=== PATIENT | female | born 1940 | race Two or more races ===

== ENCOUNTER 2019-01-15 13:01 | Inpatient (IN) | payer MEDICARE, MEDICAID ==
[~2019-01-15] VITALS: Ht 160 cm; Wt 82.6 kg
[2019-01-15] VITALS (21 sets, daily range): BP systolic 67–115; BP diastolic 32–85
[2019-01-15] MEDS ORDERED: IV NS 0.9% 500 ML BAG IV ONE (13:30)
[2019-01-15] MEDS ORDERED: ACETAMINOPHEN ES 500 MG TABLET PO ONE (13:30)
[2019-01-15 13:34] LABS: BASOPHILS % (AUTO) 0.2 % (0.0-2.0); EOSINOPHILS % (AUTO) 0.1 % (0.0-6.0); HEMATOCRIT 32 % (33-45); HEMOGLOBIN 10.8 g/dL (11.5-14.8); LYMPHOCYTES # (AUTO) 0.3 /CMM (0.8-4.8); MEAN CORPUSCULAR HGB CONC 34 g/dl (31.0-36.0); MEAN CORPUSCULAR VOLUME 91 fL (82-100); MONOCYTES # (AUTO) 0.8 /CMM (0.1-1.30); MONOCYTES % (AUTO) 7.5 % (2.0-12.0); NEUTROPHILS # (AUTO) 9.6 /CMM (1.8-8.9); NEUTROPHILS % (AUTO) 89.2 % (43.0-81.0); PLATELET COUNT (AUTO) 161 /CMM (150-450); RED BLOOD CELL COUNT(AUTO) 3.55 MIL/uL (4.0-5.2); WHITE BLOOD COUNT (AUTO) 10.7 K/uL (4.3-11.0)
[2019-01-15] MEDS ORDERED: ACETAMINOPHEN ES 500 MG TABLET ONE (13:36)
[2019-01-15 13:42] LABS: CALCIUM, SERUM 8.8 mg/dL (8.5-10.1); CARBON DIOXIDE 27 mmol/L (21-32); CHLORIDE 97 mmol/L (98-107); CREATININE 2.8 mg/dL (0.6-1.3); GLUCOSE 256 mg/dL (74-106); POTASSIUM 3.7 mmol/L (3.5-5.1); SODIUM SERUM 131 mmol/L (136-145); UREA NITROGEN, BLOOD 44 mg/dL (7-18)
--- NOTE | 2019-01-15 13:50 | NUR ---
[facility], PER REPORT AMS X 3 HOURS. PT C/O RUE PAIN AND FEVER PER REPORT BG 314 SUPERINTENDENT STEVEDORING. PT IS AAOX3. DENIES CP, SOB, DIZZINESS, NV/DIARRHEA, NO ACUTE DISTRESS NOTED, RR EVEN AND UNLABORED. PT EVALUATED BY SITA KIRKLAND. MEDICATED ORDERED. PLACED ON LAND AGENT AND WILL CONTINUE TO MONITOR.
[2019-01-15 13:56] LABS: ALANINE AMINOTRANSFERASE 140 U/L (12-78); ALBUMIN 2.6 g/dL (3.4-5.0); ALKALINE PHOSPHATASE 132 U/L (46-116); ASPARTATE AMINOTRANSFERASE 235 U/L (15-37); BILIRUBIN,DIRECT 0.3 mg/dL (0.0-0.2); BILIRUBIN,TOTAL 0.5 mg/dL (0.2-1.0); TOTAL PROTEIN, SERUM 7.3 g/dL (6.4-8.2)
[2019-01-15] MEDS ORDERED: ASPI-1152 PO (14:04)
[2019-01-15] MEDS ORDERED: DOCU250C88 PO (14:04)
[2019-01-15] MEDS ORDERED: ROSU40TA22 PO (14:04)
[2019-01-15] MEDS ORDERED: INSU10VI SQ (14:04)
[2019-01-15] MEDS ORDERED: TRAZ-213 PO (14:04)
[2019-01-15] MEDS ORDERED: CHOL200074 PO (14:04)
[2019-01-15] MEDS ORDERED: PANT40TA4 PO (14:04)
[2019-01-15] MEDS ORDERED: VANCOMYCIN 1 GM in IV D5W 250 ML IV ONE (14:30)
[2019-01-15] MEDS ORDERED: IV NS 0.9% 1,000 ML BAG IV ONE ×2 (14:30→15:30)
--- NOTE | 2019-01-15 14:30 | NUR ---
Note lala in EDM - 01/15/19 at 1708 by LAISHA PT AAOX3, DENIES CP, SOB, DIZZINESS, N/V @ THIS TIME. 2ND IV NS 1L STARTED WO, MARSII, EXECUTIVE SEARCH CONSULTANT AWARE OF BP. WILL CONT TO MONITOR.
--- NOTE | 2019-01-15 14:30 | NUR ---
PT AAOX3, DENIES CP, SOB, DIZZINESS, N/V @ THIS TIME. IV NS 1L STARTED WO, MARSII, TONG HOOKER AWARE OF BP. WILL CONT TO MONITOR.
--- NOTE | 2019-01-15 15:20 | NUR ---
PT AAOX3, DENIES CP, SOB, DIZZINESS, N/V @ THIS TIME. 2ND IV NS 1L STARTED WO, MARSII, FURNITURE ASSEMBLER AND INSTALLER AWARE OF BP. WILL CONT TO MONITOR.
--- NOTE | 2019-01-15 15:20 | NUR ---
Note lala in EDM - 01/15/19 at 1706 by LAISHA PT AAOX3, DENIES CP, SOB, DIZZINESS, N/V @ THIS TIME. 2ND IV NS 1L STARTED WO, MARSII, FORMULATION CHEMIST AWARE OF BP. WILL CONT TO MONITOR.
[2019-01-15 16:07] LABS: APPEARANCE,URINE Cloudy (CLEAR); BILIRUBIN,URINE SMALL (NEGATIVE); BLOOD, URINE Moderate Ery/uL (NEGATIVE); COLOR,URINE Yellow (YELLOW); KETONES,URINE Negative (NEGATIVE); LEUKOCYTE ESTERASE ,URINE Small (NEGATIVE); NITRITE, URINE Negative (NEGATIVE); PROTEIN,URINE 100 mg/dl (NEGATIVE); UGLUCOSE 100 MG/DL mg/dL (NEGATIVE)
[2019-01-15 16:18] LABS: BACTERIA,URINE Many /HPF (None Seen); SQUAMOUS EPITHELIAL CELL,UR Few /HPF (None Seen)
[2019-01-15] MEDS ORDERED: LEVOFLOXACIN 750 MG /D5W 150ML 150 ML IV ONE ×2 (16:30→16:56)
[2019-01-15] MEDS: NOREPINEPHRINE 8 MG in IV D5W 500 ML IV ONE ×2 (16:58→17:29)
--- NOTE | 2019-01-15 17:10 | NUR ---
LEVOPHED IV HELD, BP 130/50. MARSII, DIRECTOR OF INFECTION PREVENTION. WILL CONT TO MONITOR. PT STABLE, RR EVEN & UNLABORED, NAD NOTED @ THIS TIME
--- NOTE | 2019-01-15 17:32 | NUR ---
BP 84/41, STARTED LEVOPHED IV 2MCG/MIN PER PROTOCOL. ISAEL, NIGHT CLERK AUDITOR AWARE.
[2019-01-15] MEDS ORDERED: IV NS 0.9% 1,000 ML IV PRN (17:37)
[2019-01-15] MEDS ORDERED: ONDANSETRON HCL/PF 4 MG/2 ML VIAL IVP PRN (18:00)
[2019-01-15] MEDS ORDERED: MAGNESIUM HYDROXIDE 30 ML UDC PO PRN (18:00)
[2019-01-15] MEDS ORDERED: INSULIN REGULAR, HUMAN 100 UNIT/ML 3 ML VIAL SQ PRN (18:00)
[2019-01-15] MEDS ORDERED: DEXTROSE 50%-WATER 50 ML DISP.SYRIN IV PRN ×2 (18:00→21:00)
[2019-01-15] MEDS ORDERED: TRAZODONE 50 MG TABLET PO PRN (18:00)
[2019-01-15] MEDS ORDERED: Z GUARD REMEDY 2 OZ OINT TP PRN (18:00)
[2019-01-15] MEDS ORDERED: HYDROCODONE/APAP 5/325MG 1 EACH TABLET PO PRN (18:00)
[2019-01-15] MEDS ORDERED: MAG HYDROX/AL HYDROX/SIMETH 30 ML UDC PO PRN (18:00)
--- NOTE | 2019-01-15 18:25 | NUR ---
REPORT GIVEN TO JEF LAL FOR CONT OF CARE. BP 156/70. STOPPED LEVOPHED IV. PT STABLE, DENIES CP, SOB, DIZZINESS, N/V, WEAKNESS @ THIS TIME & STABLE TO TRANSFER TO ICU VIA ALS.
[2019-01-15] MEDS: CHOLECALCIFEROL 1,000 UNIT TABLET (VIT D3) PO SCH ×2 (18:30→20:47)
--- NOTE | 2019-01-15 18:45 | NUR ---
ICU/RN: Pt received from ER, A&Ox3, belarusian speaking only, new IV HL inserted R wrist #20. Skin issues photographed and placed in chart. Report given to pm RN for MAGDIEL.
[2019-01-15] MEDS: MEROPENEM 500 MG in IV NS 0.9% 50 ML IV SCH (19:59)
--- NOTE | 2019-01-15 20:50 | NUR ---
CLINICAL TRAINING COORDINATOR: CLARIFIED WT DR. BILLINGSLEY PT HAS DX OF DM, ONLY ON NS AT 75ML/HR AND IF STILL WANT NPO PT HAS STANDING ORDERS FOR PO MEDS. SAID OK FOR PO MEDS TO BE GIVEN AND CHANGE IVF TO D5NS AT 75ML/HR AND DO ACCUCHEK Q4H SHE HAS ELEVATED LIVER ENZYMES. NOTED AND CARRIED OUT. MD ALSO AGREED TO HV F/C INSERTION PT IS STRICT I&O. PROCEDURE TOLERATED WELL WT URINE DRAINING CLOUDY AND YELLOW IN COLOR. WILL CONTINUE TO MONITOR.
[2019-01-15] MEDS: IV D5/ 0.9% NACL 1,000 ML IV PRN (21:24)
[2019-01-15] MEDS: BLOOD SUGAR DIAGNOSTIC 1 EACH STRIP IN SCH (21:46)
[2019-01-15] MEDS: INSULIN REGULAR, HUMAN 100 UNIT/ML 3 ML VIAL SQ PRN (21:48)
[2019-01-15] MEDS ORDERED: BLOOD SUGAR DIAGNOSTIC 1 EACH STRIP IN SCH (22:00)
[2019-01-16] VITALS (18 sets, daily range): BP systolic 90–138; BP diastolic 40–94
[2019-01-16] MEDS: BLOOD SUGAR DIAGNOSTIC 1 EACH STRIP IN SCH ×5 (01:24→17:32)
[2019-01-16] MEDS: INSULIN REGULAR, HUMAN 100 UNIT/ML 3 ML VIAL SQ PRN ×5 (01:26→17:43)
[2019-01-16] MEDS: ACETAMINOPHEN 325 MG TABLET PO PRN ×3 (01:26→19:49)
--- NOTE | 2019-01-16 01:30 | NUR ---
PIPE JOINTS SUPERVISOR: CALLED AND NOTIFIED DR. BILLINGSLEY THAT PT HAS HFYP=480.8 WT CHILLS. COOLING MEASURES RENDERED AND VERIFIED WT MD IF OK TO GIVE TYLENOL OR NORCO BOTH MEDS CONTAIN ACETAMINOPHEN AND PT HAS ELEVATED LIVER ENZYMES. SAID OK TO GIVE. GIVEN TYLENOL ORDER. WILL MONITOR EFFECTIVITY.
--- NOTE | 2019-01-16 02:30 | NUR ---
PROPERTY MANAGEMENT BOOKKEEPER: REASSESSED TEMP AFTER GIVEN TYLENOL WT NO EFFECT. STILL FEBRILE AT 102. COLD BED BATH GIVEN AND TOLERATED WELL. PT REMAINS A/O X 3. NO ACUTE DISTRESS, MINIMAL BLE CHRONIC DISCOMFORT/NEUROPATHIC PAIN (12/31). SR ON MILLROOM SUPERVISOR. WILL ASK MD FOR COOLING BLANKET.
[2019-01-16 05:11] LABS: ALANINE AMINOTRANSFERASE 185 U/L (12-78); ALBUMIN 2.1 g/dL (3.4-5.0); ALKALINE PHOSPHATASE 118 U/L (46-116); ASPARTATE AMINOTRANSFERASE 279 U/L (15-37); BILIRUBIN,DIRECT 0.1 mg/dL (0.0-0.2); BILIRUBIN,TOTAL 0.3 mg/dL (0.2-1.0); CALCIUM, SERUM 7.3 mg/dL (8.5-10.1); CARBON DIOXIDE 20 mmol/L (21-32); CHLORIDE 101 mmol/L (98-107); CREATININE 2.7 mg/dL (0.6-1.3); GLUCOSE 293 mg/dL (74-106); MAGNESIUM 1.7 mg/dL (1.8-2.4); PHOSPHORUS 1.9 mg/dL (2.5-4.9); SODIUM SERUM 131 mmol/L (136-145); TOTAL PROTEIN, SERUM 6.1 g/dL (6.4-8.2); UREA NITROGEN, BLOOD 46 mg/dL (7-18)
[2019-01-16] MEDS: MEROPENEM 500 MG in IV NS 0.9% 50 ML IV SCH ×2 (05:35→17:31)
[2019-01-16 05:43] LABS: CHOLESTEROL 121 mg/dL (<200); LDL 51 mg/dL (0-99); THYROID STIMULATING HORMONE 5.422 uIU/mL (0.358-3.74); TRIGLYCERIDES 248 mg/dL (30-150)
[2019-01-16 05:47] LABS: HDL CHOLESTEROL < 10 mg/dL (40-60)
[2019-01-16 05:50] LABS: BASOPHILS % (AUTO) 0.3 % (0.0-2.0); EOSINOPHILS % (AUTO) 0.5 % (0.0-6.0); HEMATOCRIT 25 % (33-45); HEMOGLOBIN 8.5 g/dL (11.5-14.8); LYMPHOCYTES # (AUTO) 0.4 /CMM (0.8-4.8); LYMPHOCYTES % (AUTO) 5.5 % (20.0-44.0); MEAN CORPUSCULAR HGB CONC 34 g/dl (31.0-36.0); MEAN CORPUSCULAR VOLUME 91 fL (82-100); MONOCYTES # (AUTO) 0.7 /CMM (0.1-1.30); MONOCYTES % (AUTO) 10.1 % (2.0-12.0); NEUTROPHILS % (AUTO) 83.6 % (43.0-81.0); PLATELET COUNT (AUTO) 118 /CMM (150-450); RED BLOOD CELL COUNT(AUTO) 2.77 MIL/uL (4.0-5.2); WHITE BLOOD COUNT (AUTO) 7.2 K/uL (4.3-11.0)
--- NOTE | 2019-01-16 06:05 | NUR ---
ELECTRONICS TECHNICIAN: GIVEN D50 AGAIN FOR BS=60. CONTINUE ON D5W AT 30ML/HR WT LARGE URINE OUTPUT. REMAINS SEDATED ON DIPRIVAN AT 10MCG/KG/MIN. BILAT. SOFT WRIST RESTRAINTS IN PLACE FOR EPISODES OF TRYING TO REACH TUBINGS. SKIN AND CIRCULATION WNL. CBC REDRAWN FOR CRITICALLY LOW H&H AND PLATELET. H&H RESULT FROM LINE REDRAW IMPROVED AT 7.3/ BUT PLATELET STILL THE SAME AT 26; NO ACTIVE BLEEDING NOTED. K=2.8. PAGEManolo MORILLO. AWAITING CALL BACK. SAFETY PRECAUTION NOTED AT ALL TIMES. Addendum: 01/16/19 at 0639 by CHRISTOPHER WOLF RN PLS DISREGARD ABOVE NOTE. WRONG PT ENTRY.
--- NOTE | 2019-01-16 06:45 | NUR ---
FLOOR ASSOCIATE: CARLOS. NOW WNL=98.9 (RECTAL). PT EYES CLOSED, ABLE TO OPEN EYES WHEN CALLED BY NAME/TOUCHED. REMAINED A/O X 3, ON 2L 02 VIA NC WT NO ACUTE DISTRESS. NO C/O PAIN. SR ON TOPPIECE CUTTER. ALL NEEDS MET. WILL ENDORSE TO DAY SHIFT FOR CONTINUITY OF CARE.
--- NOTE | 2019-01-16 07:52 | NUR ---
WOUND CARE CONSULT: PT PRESENTS WITH ULCER TO LEFT HEEL AND DISCOLORATION/DRY BLISTERS TO LEFT DISTAL TOES, RT HEEL SCARRING, PRESENT ON ADMISSION. RECOMMEND DPM CONSULT. RECOMMENDATIONS MADE FOR SKIN PROTECTION. DISCUSSED WITH NURSING STAFF. PT ABLE TO ASSIST WITH TURNING AND REPOSITIONING IN BED. WILL SEE PRN. CURRENT [place] SCORE IS 14. MD IN AGREEMENT WITH PLAN OF CARE. Addendum: 01/16/19 at 0757 by GRAY GRIDER WNDNU Amended: Links added.
[2019-01-16] MEDS: Magnesium 1GM/D5W 100ML PREMIX 100 ML IV SCH ×2 (08:44→09:48)
[2019-01-16] MEDS: PANTOPRAZOLE 40 MG VIAL IV SCH (08:45)
[2019-01-16] MEDS: CHOLECALCIFEROL 1,000 UNIT TABLET (VIT D3) PO SCH (08:45)
[2019-01-16] MEDS: DOCUSATE SODIUM 250 MG CAPSULE PO SCH (08:45)
[2019-01-16] MEDS: IV D5/ 0.9% NACL 1,000 ML IV PRN (09:00)
--- NOTE | 2019-01-16 11:16 | NUR ---
COKE INSPECTOR NOTES: PODIATRY CONSULT (DR. ZIMMER) DR. ZIMMER AT BEDSIDE FOR CONSULT. VERBAL ORDERS GIVEN TO OBTAIN CONSENT FOR WOUND DEBRIDEMENT OF THE LEFT HEEL AND BILATERAL ARTERIAL US.
--- NOTE | 2019-01-16 12:14 | NUR ---
RECRUITING CONSULTANT NOTES: MD ROUNDING (DR. BELLA) DR. BELLA AT BEDSIDE AND UPDATED ON PT'S CONDITION. PER FACILITIES PLANNER" MAINTAIN PT ON NPO, CONTINUE CURRENT IV FLUIDS, CHANGE ACCU CHECKS TO Q6 FACILITIES PLANNER SLIDING SCALE, GET ANOTHER REPEAT PROCALCITONIN, AND OB STOOL". FURTHER STATES THAT PT WILL BE SEEN BY SURGEON DR. SCHAFFER ALONG WITH A A MAMMOGRAPHY TECHNICIAN DUE TO TRENDING BUN AND CREATININE. WILL CARRY OUT ORDERS
[2019-01-16] MEDS ORDERED: DEXTROSE 50%-WATER 50 ML DISP.SYRIN IV PRN (12:30)
[2019-01-16] MEDS ORDERED: K PHOS NEUTRAL 250 MG TABLET PO ONE (13:30)
[2019-01-16] MEDS ORDERED: FEE PK DOSING 1 MIN EA MC ONE (15:00)
--- NOTE | 2019-01-16 16:03 | NUR ---
FOOD CRITIC NOTES: CT GUIDED DRAINAGE RADIOLOGIST CONTACTED IN REGARDS TO CT DRAINAGE. PER RADIOLOGIST "IT WILL BE DONE TOMORROW"
[2019-01-16] MEDS: LACTOBACILLUS RHAMNOSUS GG 1 EACH CAP.SPRINK PO SCH (17:32)
[2019-01-16] MEDS: VANCOMYCIN 0.75 GM in IV D5W 250 ML IV SCH (17:32)
--- NOTE | 2019-01-16 17:49 | NUR ---
INCOMING FREIGHT CLERK NOTES: TEMPERATURE MANAGEMENT PT HAD A TEMP OF 101.9. ACETAMINOPHEN GIVEN., COOLING MEASURES (BLANKET, FAN, ICE PACKS) INITIATED. TEMP RECHECKED AFTER INTERVENTIONS SLOWLY TRENDING DOWN AND IS CURRENTLY 99.8
--- NOTE | 2019-01-16 18:00 | NUR ---
DR BELLA MADE AWARE OF PT'S CURRENT PROCALCITONIN. TIMOTHY (ID CROCODILE FARMER) MADE ALSO MADE AWARE OF PT'S PREVIOUS CRITICAL VALUE. NO NEW ORDERS AT THIS TIME
--- NOTE | 2019-01-16 18:30 | NUR ---
KARLI RN NOTES RECEIVED PT ON [facility] FLOOR. PT A/O X2-3. GUAMANIAN SPEAKING. WITH CONGESTED COUGH BUT NON PRODUCTIVE. PT IS NPO EXCEPT MEDS. AFEBRILE ORAL TEMP. MITCHEL GALINDO AT BEDSIDE. ON 2L NC. F/C IN PLACE YVONNE CLEAR URINE DRAINING. VANCO RUNNING AT 250ML/HR. LEFT HEEL DEBRIDED TODAY/ WRAPPED BY DR ZIMMER. ON TELE SR W/ 1ST DEG AV BLOCK. RFA #20 AND LAC #[address]. PT HAS NO C/O PAIN AT THIS TIME. WILL ENDORSE TO NOC NURSE FOR MAGDIEL.
--- NOTE | 2019-01-16 18:52 | NUR ---
AERIAL PHOTOGRAPH INTERPRETERMACHINE SHOP WORKER NOTES PT TRANSFERRED TO [facility] ROOM 119-1 VIA [facility] TRANSPORT. VITALS SIGNS STABLE PRIOR TO D/C. ALL NEED MET DURING SHIFT AND ORDERS CARRIED OUT ACCORDINGLY. ALL DUE MEDS. GIVEN. WOUND AND PRN CARE RENDERED. PT REPOSITIONED PER PROTOCOL. ALL BELONGINGS VERIFIED PRIOR TO TRANSFER. REPORT GIVEN TO JEF WU FOR MAGDIEL Addendum: 01/16/19 at 1858 by PRISCILLA BURNETT RN PT'S TEMP AND PROCALCITONIN REPORTED TO JEF
--- NOTE | 2019-01-16 19:27 | NUR ---
KARLI RN NOTE PATIENT REPORT GIVEN BEDSIDE. PATIENT IN BED RESTING NO APPARENT S/S OF DISTRESS. PATIENT GEORGIAN SPEAKING A/O X 2-3/ PATIENT HAS FC DRAINING WELL TO GRAVITY. PATIENT REPOSITIONED FOR COMFORT. NO C/O PAIN AT THIS TIME. PATIENT HAS RFA RUINING 75 ML/HR NO S/S OF INFECTION, PATENT. SAFETY MEASURES IN PLACE. SIDE RAILS UP X 2. RN WILL CONTINUE TO MONITOR.
--- NOTE | 2019-01-16 20:22 | NUR ---
KARLI FUCHS NOTE PATIENT NOTED TO HAVE MILD FEVER, TYLENOL GIVEN AND COOLING MEASURES IMPLEMENTED. Addendum: 01/16/19 at 2025 by MELINA COULTER RN Amended: Links added.
--- NOTE | 2019-01-16 21:00 | NUR ---
KAR[facility] RN NOTE FAMILY CAME IN TO SIGN CONSENTS FOR CT FOR LIVER ABSCESS AND MODERATE SEDATION. FAMILY VERBALIZES UNDERSTANDING AND EXPLAINED TO PATIENT. BOTH PARTIES SHOW UNDERSTANDING.
[2019-01-17] VITALS: BP 100/50
[2019-01-17] MEDS: BLOOD SUGAR DIAGNOSTIC 1 EACH STRIP IN SCH ×6 (00:45→21:47)
[2019-01-17] MEDS: INSULIN REGULAR, HUMAN 100 UNIT/ML 3 ML VIAL SQ PRN ×5 (00:52→21:57)
[2019-01-17] MEDS ORDERED: VANCOMYCIN 1 GM in IV D5W 250 ML IV SCH (03:00)
[2019-01-17] MEDS: IV D5/ 0.9% NACL 1,000 ML IV PRN (03:55)
[2019-01-17 04:00] VITALS: BP 98/57
[2019-01-17] MEDS ORDERED: MEROPENEM 500 MG VIAL IV ONE (05:53)
[2019-01-17] MEDS: MEROPENEM 500 MG in IV NS 0.9% 50 ML IV SCH ×2 (05:55→17:57)
[2019-01-17 06:42] LABS: BASOPHILS % (AUTO) 0.3 % (0.0-2.0); HEMATOCRIT 29 % (33-45); HEMOGLOBIN 9.9 g/dL (11.5-14.8); LYMPHOCYTES # (AUTO) 0.6 /CMM (0.8-4.8); LYMPHOCYTES % (AUTO) 6.2 % (20.0-44.0); MEAN CORPUSCULAR HGB CONC 34 g/dl (31.0-36.0); MEAN CORPUSCULAR VOLUME 92 fL (82-100); MONOCYTES # (AUTO) 0.5 /CMM (0.1-1.30); MONOCYTES % (AUTO) 5.9 % (2.0-12.0); NEUTROPHILS # (AUTO) 7.8 /CMM (1.8-8.9); NEUTROPHILS % (AUTO) 86.6 % (43.0-81.0); PLATELET COUNT (AUTO) 115 /CMM (150-450); RED BLOOD CELL COUNT(AUTO) 3.18 MIL/uL (4.0-5.2)
[2019-01-17 06:49] LABS: ALANINE AMINOTRANSFERASE 283 U/L (12-78); ALBUMIN 1.9 g/dL (3.4-5.0); ALKALINE PHOSPHATASE 157 U/L (46-116); ASPARTATE AMINOTRANSFERASE 447 U/L (15-37); BILIRUBIN,TOTAL 0.5 mg/dL (0.2-1.0); CALCIUM, SERUM 7.6 mg/dL (8.5-10.1); CARBON DIOXIDE 20 mmol/L (21-32); CHLORIDE 104 mmol/L (98-107); CREATININE 3.9 mg/dL (0.6-1.3); GLUCOSE 347 mg/dL (74-106); MAGNESIUM 2.4 mg/dL (1.8-2.4); PHOSPHORUS 4.1 mg/dL (2.5-4.9); POTASSIUM 4.7 mmol/L (3.5-5.1); SODIUM SERUM 135 mmol/L (136-145); TOTAL PROTEIN, SERUM 6.2 g/dL (6.4-8.2); UREA NITROGEN, BLOOD 56 mg/dL (7-18)
--- NOTE | 2019-01-17 07:17 | NUR ---
KARLI RN NOTE PATIENT TOLERATED THE NIGHT WELL. NO FURTHER INCIDENCE OF FEVER. PATIENT STABLE NO S/S OF DISTRESS/ CHEST PAIN. NO ACUTE CHANGES. ENDORSED POC TO AM FO MAGDIEL. CARE RENDERED ORDERED.
--- NOTE | 2019-01-17 07:50 | NUR ---
RN NOTE: RECEIVED PATIENT IN BED, AWAKE, ALERT AND VERBALLY RESPONSIVE. RESPIRATION EVEN AND UNLABORED SATURATING 97%. DENIED ANY PAIN. (R) FOREARM IV SITE NOTED IN PLACED WITH D5NS @75ML/HR. KEPT NPO EXCEPT MEDS DUE TO THE PROCEDURE FOR TODAY. BED ON LOWEST POSITION AND LOCKED AT ALL TIMES. HOB ELEVATED. CALL LIGHT WITHIN REACH. NEEDS ANTICIPATED.
[2019-01-17 08:00] VITALS: BP 146/57
[2019-01-17] MEDS ORDERED: OSELTAMIVIR PHOSPHATE SUSP 6 MG/ML BOTTLE PO SCH (09:00)
[2019-01-17] MEDS ORDERED: OSELTAMIVIR PHOSPHATE 75 MG CAPSULE PO SCH (09:00)
[2019-01-17] MEDS: PANTOPRAZOLE 40 MG VIAL IV SCH (09:44)
[2019-01-17] MEDS: CHOLECALCIFEROL 1,000 UNIT TABLET (VIT D3) PO SCH (09:45)
[2019-01-17] MEDS: DOCUSATE SODIUM 250 MG CAPSULE PO SCH (09:45)
[2019-01-17] MEDS: LACTOBACILLUS RHAMNOSUS GG 1 EACH CAP.SPRINK PO SCH ×2 (09:45→16:47)
[2019-01-17] MEDS: HYDROGEL DRESSING 90 GM TUBE TP SCH (09:54)
[2019-01-17] MEDS ORDERED: FENTANYL PF 250MCG/5ML AMPUL IV ONE (10:00)
[2019-01-17] MEDS ORDERED: NALOXONE PREFILLED SYRINGE 2 MG/2 ML SYRINGE IV ONE (10:00)
[2019-01-17] MEDS ORDERED: MIDAZOLAM HCL 5MG/ML VIAL 25 MG/5 ML VIAL IV ONE (10:00)
--- NOTE | 2019-01-17 10:05 | NUR ---
RN NOTE: PATIENT WAS TRANSFERRED TO THE RADIOLOGY DEPARTMENT FOR THE CT GUIDED PERCUTANEOUS DRAINAGE TEST. ON STABLE CONDITION. CHART WAS SENT WITH THE PATIENT. TRANSPORTED BY THE 2 RADIOLOGY STAFF.
[2019-01-17] MEDS ORDERED: IV NS 0.9% 500 ML IV ONE (10:25)
[2019-01-17] MEDS ORDERED: LIDOCAINE HCL/PF 1% 30 ML SDV ONE (10:57)
--- NOTE | 2019-01-17 12:15 | NUR ---
RN NOTE: PATIENT WAS RETURNED TO THE UNIT ON RM 119-1 AND SHAYNE, RECOVERY NURSE GAVE BEDSIDE REPORT REGARDING THE PATIENT. PATIENT WAS AWAKE, ALERT AND VERBALLY RESPONSIVE. TOLERATED THE PROCEDURE. CAME BACK WITH A DRAINAGE ON THE (R) LOWER QUADRANT NOTED WITH RED IN COLOR DRAINAGE IN THE COLLECTION BAG. V/S- 129/59, HR= 118 AND O2 SAT WAS 98% AND DENIED PAIN. INFORMED DR. BELLA IF PATIENT CAN BE PUT BACK ON THE ELECTRONIC ASSEMBLER GROUP LEADER DUE TO THE ELEVATED HEART RATE. MD GAVE NO ORDER. PATIENT REMAINED AWAKE AND ALERT UPON RETURN TO THE UNIT.
--- NOTE | 2019-01-17 12:56 | NUR ---
RN NOTE: DR. BELLA WAS MADE AWARE THAT THE PATIENT WAS RETURNED TO THE UNIT AT AROUND 1215PM. MD WAS ASKED IF HE WANTED TO START FEEDING THE PATIENT WITH FOOD. PER MD, OK TO FEED THE PATIENT AND GAVE A DIET ORDER. PATIENT'S LIVER ABSCESS 10 ML RED IN COLOR DRAINAGE WAS HANDED BY SHAYNE, RECOVERY NURSE TO THE NURSE ASSIGNED TO THE PATIENT. PATIENT WAS SEATED UPRIGHT ON THE BED WITH A SISTER AT THE BEDSIDE.
[2019-01-17] MEDS ORDERED: DEXTROSE 50%-WATER 50 ML DISP.SYRIN IV PRN (13:00)
[2019-01-17] MEDS: SOD FERRIC GLUC 125 MG in IV NS 0.9% 100 ML IV SCH (15:20)
[2019-01-17 16:00] VITALS: BP 85/42
[2019-01-17] MEDS: VANCOMYCIN 0.75 GM in IV D5W 250 ML IV SCH (16:46)
[2019-01-17 17:00] VITALS: BP 95/63
--- NOTE | 2019-01-17 19:28 | NUR ---
RN NOTE: PATIENT ON STABLE CONDITION. BEDSIDE REPORT GIVEN TO PM SHIFT NURSE FOR CONTINUITY OF CARE. CALL LIGHT WITHIN REACH.
--- NOTE | 2019-01-17 19:30 | NUR ---
MS RN NOTES RECEIVED ON BED ON SEMI FOWLERS POSITION,BREATHING NON LABORED,O2 IN USED TO KEEP O2 SAT ABOVE 90%.IVF D5NS AT 75ML/HR RATE IN PROGRESS VIA IV PUMP.S/P CT OF LIVER WITH DRAINAGE APPLICATION,DRAINS SANGUINOUS OUTPUT.WITH LYNCH CATH IN PLACE DRAINS YELLOWISH URINE OUTPUT.NOTED LEFT HEEL WOUND,S/P WOUND DEBRIDEMENT YESTERDAY 01/[address] ZIMMER.DRESSING INTACT AND DRY,ELEVATED ON PILLOWS.WILL CONTINUE TO MONITOR STATUS.CALL LIGHT IN REACH,NEEDS ANTICIPATED.
--- NOTE | 2019-01-17 22:00 | NUR ---
MS RN NOTES ACCU-CHECK BLOOD SUGAR CHECK 304,COVERED WITH HUMULIN R 8 UNITS PER SLIDING SCALE.
[2019-01-18] MEDS: IV D5/ 0.9% NACL 1,000 ML IV PRN ×2 (00:57→16:42)
[2019-01-18 04:12] VITALS: BP 94/42
--- NOTE | 2019-01-18 04:54 | NUR ---
MS RN NOTES PAIN MANAGEMENT C/O ABDOMINAL 7/10 ON PAIN SCALE,NORCO 5/325MG,1 TAB PO GIVEN.
[2019-01-18] MEDS: MEROPENEM 500 MG in IV NS 0.9% 50 ML IV SCH ×2 (05:46→18:27)
--- NOTE | 2019-01-18 06:22 | NUR ---
MS RN NOTES FEELS BETTER ,PAIN MANAGEMENT EFFECTIVE,LIVER SITE DRAINS INTACT AND PATENT.IN NO ACUTE DISTRESS.WILL ENDORSE TO DAY NURSE FOR CO.
[2019-01-18 07:00] LABS: BASOPHILS % (AUTO) 0.6 % (0.0-2.0); EOSINOPHILS % (AUTO) 0.9 % (0.0-6.0); HEMATOCRIT 27 % (33-45); HEMOGLOBIN 9.1 g/dL (11.5-14.8); LYMPHOCYTES # (AUTO) 0.5 /CMM (0.8-4.8); LYMPHOCYTES % (AUTO) 8.5 % (20.0-44.0); MEAN CORPUSCULAR HGB CONC 34 g/dl (31.0-36.0); MEAN CORPUSCULAR VOLUME 92 fL (82-100); MONOCYTES # (AUTO) 0.3 /CMM (0.1-1.30); MONOCYTES % (AUTO) 5.2 % (2.0-12.0); NEUTROPHILS # (AUTO) 5.3 /CMM (1.8-8.9); NEUTROPHILS % (AUTO) 84.8 % (43.0-81.0); RED BLOOD CELL COUNT(AUTO) 2.94 MIL/uL (4.0-5.2); WHITE BLOOD COUNT (AUTO) 6.3 K/uL (4.3-11.0)
--- NOTE | 2019-01-18 07:00 | NUR ---
MS RN OPENING NOTES RECEIVED PT IN BED, ASLEEP BUT EASILY AROUSABLE. ON 2L NC. O2 SAT WNL. F/C IN PLACE DRAINING CLEAR YELLOW URINE. DRAINAGE DEVICE IN PLACE, DRAINING DARK BLOODY DRAINAGE. PT NOT C/O PAIN AT THIS TIME. BS CHECKED. BED IN LOCKED/LOWEST POSITION. CALL LIGHT IN REACH. WILL CONT TO MONITOR.
[2019-01-18] MEDS: BLOOD SUGAR DIAGNOSTIC 1 EACH STRIP IN SCH ×4 (07:51→21:43)
[2019-01-18 08:00] VITALS: BP 90/40
[2019-01-18 08:30] LABS: BAND % (MANUAL) 4 % (0.0-5.0); LYMPHOCYTES % (MANUAL) 8 % (16-48); MONOCYTES % (MANUAL) 5 % (0-11.0); NEUTROPHILS % (MANUAL) 83 (42-76)
[2019-01-18 08:43] LABS: PLATELET COUNT (AUTO) 111 /CMM (150-450)
[2019-01-18 08:50] LABS: ALANINE AMINOTRANSFERASE 192 U/L (12-78); ALBUMIN 1.6 g/dL (3.4-5.0); ALKALINE PHOSPHATASE 142 U/L (46-116); ASPARTATE AMINOTRANSFERASE 217 U/L (15-37); BILIRUBIN,DIRECT 0.1 mg/dL (0.0-0.2); BILIRUBIN,TOTAL 0.3 mg/dL (0.2-1.0); CALCIUM, SERUM 7.1 mg/dL (8.5-10.1); CARBON DIOXIDE 18 mmol/L (21-32); CHLORIDE 105 mmol/L (98-107); CREATININE 4.1 mg/dL (0.6-1.3); MAGNESIUM 2.3 mg/dL (1.8-2.4); PHOSPHORUS 3.8 mg/dL (2.5-4.9); POTASSIUM 4.1 mmol/L (3.5-5.1); SODIUM SERUM 137 mmol/L (136-145); TOTAL PROTEIN, SERUM 5.7 g/dL (6.4-8.2); UREA NITROGEN, BLOOD 61 mg/dL (7-18)
[2019-01-18 09:00] LABS: GLUCOSE 366 mg/dL (74-106)
[2019-01-18] MEDS: HYDROGEL DRESSING 90 GM TUBE TP SCH (09:00)
[2019-01-18] MEDS: LACTOBACILLUS RHAMNOSUS GG 1 EACH CAP.SPRINK PO SCH ×2 (09:19→17:09)
[2019-01-18] MEDS: PANTOPRAZOLE 40 MG VIAL IV SCH (09:19)
[2019-01-18] MEDS: CHOLECALCIFEROL 1,000 UNIT TABLET (VIT D3) PO SCH (09:19)
[2019-01-18] MEDS: DOCUSATE SODIUM 250 MG CAPSULE PO SCH (09:20)
[2019-01-18] MEDS: INSULIN REGULAR, HUMAN 100 UNIT/ML 3 ML VIAL SQ PRN ×4 (09:20→21:44)
[2019-01-18] MEDS: SOD FERRIC GLUC 125 MG in IV NS 0.9% 100 ML IV SCH (13:57)
[2019-01-18 16:00] VITALS: BP 97/49
[2019-01-18] MEDS: VANCOMYCIN 0.75 GM in IV D5W 250 ML IV SCH (16:58)
--- NOTE | 2019-01-18 18:55 | NUR ---
MS RN END OF SHIFT NOTES PT IN BED, RESTING. ALL TX RENDERED ORDERED. PT TOLERATED TREATMENTS WELL. SEEN BY PHI SESAY TODAY, PER SHAMA DRAIN IS FUNCTIONING WELL, DRAINING SEROSANGUINEOUS FLUID. MARKED ON DRAINAGE BAG AT END OF SHIFT. BED IN LOCKED/LOWEST POSITION. CALL LIGHT IN REACH. WILL ENDORSE TO NOC NURSE FOR MAGDIEL.
--- NOTE | 2019-01-18 20:30 | NUR ---
MS RN NOTE RECEIVED MIDSHIFT REPORT FROM JEF ESPINOZA. PT IN STABLE CONDITION, A&O X2-3. NO SIGNS OF SOB OR DISTRESS. NO C/O PAIN. ON 02 2L VIA NC, TOLERATING WELL. LYNCH CATH PATENT WITH ADEQUATE URINE DRAINING. R ARM #20 PATENT AND INTACT WITH IVF INFUSING. ALL CURRENT NEEDS MET. SAFETY PRECAUTIONS IN PLACE: BED LOW, LOCKED, UPPER RAILS UP AND CALL LIGHT WITHIN REACH.
[2019-01-18] MEDS ORDERED: LINEZOLID RTU BAG 600 MG in PREMIX 1 EA IV ONE (22:30)
[2019-01-18] MEDS ORDERED: LINEZOLID RTU BAG 300 ML IV ONE (22:55)
[2019-01-19 04:00] VITALS: BP 98/35
[2019-01-19 04:26] LABS: APPEARANCE,URINE CLOUDY (CLEAR); BILIRUBIN,URINE NEGATIVE (NEGATIVE); BLOOD, URINE 3+ Ery/uL (NEGATIVE); COLOR,URINE YELLOW (YELLOW); KETONES,URINE NEGATIVE (NEGATIVE); LEUKOCYTE ESTERASE ,URINE NEGATIVE (NEGATIVE); NITRITE, URINE NEGATIVE (NEGATIVE); PROTEIN,URINE 2+ mg/dl (NEGATIVE); UGLUCOSE 1+ mg/dL (NEGATIVE); UROBILINOGEN,URINE 0.2 EU/dL (0.2)
[2019-01-19 04:33] LABS: CREATININE, URINE 98.2 MG/DL (30.0-125.0); URINE TOTAL PROTEIN 138.7 mg/dL (0-11.9)
[2019-01-19 04:49] LABS: BACTERIA,URINE Few /HPF (None Seen); SQUAMOUS EPITHELIAL CELL,UR Few /HPF (None Seen); URINE AMORPHOUS URATE Few /HPF (None Seen)
[2019-01-19] MEDS: MEROPENEM 500 MG in IV NS 0.9% 50 ML IV SCH ×2 (05:13→17:39)
[2019-01-19 05:19] LABS: EOSINOPHIL,URINE Rare
--- NOTE | 2019-01-19 06:28 | NUR ---
MS RN NOTE PT IN STABLE CONDITION, A&O X2-3. NO SIGNS OF SOB OR DISTRESS. NO C/O PAIN. ON 02 2L VIA NC, TOLERATING WELL. LIVER ACCORDION DRAIN WITH 75 ML OUT. LYNCH CATH PATENT WITH ADEQUATE URINE DRAINING. R ARM #20 PATENT AND INTACT WITH IVF INFUSING. ALL CURRENT NEEDS MET. SAFETY PRECAUTIONS IN PLACE: BED LOW, LOCKED, UPPER RAILS UP AND CALL LIGHT WITHIN REACH AND ENDORSE TO NEXT SHIFT FOR MAGDIEL.
[2019-01-19 06:43] LABS: BASOPHILS % (AUTO) 0.2 % (0.0-2.0); EOSINOPHILS % (AUTO) 0.9 % (0.0-6.0); HEMATOCRIT 25 % (33-45); HEMOGLOBIN 8.3 g/dL (11.5-14.8); LYMPHOCYTES # (AUTO) 0.5 /CMM (0.8-4.8); LYMPHOCYTES % (AUTO) 6.8 % (20.0-44.0); MEAN CORPUSCULAR HGB CONC 34 g/dl (31.0-36.0); MEAN CORPUSCULAR VOLUME 94 fL (82-100); MONOCYTES # (AUTO) 0.3 /CMM (0.1-1.30); MONOCYTES % (AUTO) 4.7 % (2.0-12.0); NEUTROPHILS # (AUTO) 6.1 /CMM (1.8-8.9); NEUTROPHILS % (AUTO) 87.4 % (43.0-81.0); PLATELET COUNT (AUTO) 128 /CMM (150-450); RED BLOOD CELL COUNT(AUTO) 2.66 MIL/uL (4.0-5.2)
[2019-01-19 06:54] LABS: ALANINE AMINOTRANSFERASE 136 U/L (12-78); ALBUMIN 1.5 g/dL (3.4-5.0); ALKALINE PHOSPHATASE 129 U/L (46-116); ASPARTATE AMINOTRANSFERASE 98 U/L (15-37); BILIRUBIN,TOTAL 0.3 mg/dL (0.2-1.0); CALCIUM, SERUM 7.4 mg/dL (8.5-10.1); CARBON DIOXIDE 18 mmol/L (21-32); CHLORIDE 102 mmol/L (98-107); CREATININE 3.2 mg/dL (0.6-1.3); GLUCOSE 314 mg/dL (74-106); MAGNESIUM 1.9 mg/dL (1.8-2.4); PHOSPHORUS 3.7 mg/dL (2.5-4.9); POTASSIUM 3.8 mmol/L (3.5-5.1); SODIUM SERUM 132 mmol/L (136-145); TOTAL PROTEIN, SERUM 5.5 g/dL (6.4-8.2); UREA NITROGEN, BLOOD 57 mg/dL (7-18)
[2019-01-19 07:00] LABS: CREATINE KINASE, TOTAL 375 U/L (26-192)
--- NOTE | 2019-01-19 07:20 | NUR ---
RN MS OPENING NOTES RECEIVED REPORT FROM CHIEF OPERATOR RN. PT IS SLEEPING IN BED WITH AN IV IN RIGHT AC RUNNING D5NS @75 ML/HR. CALL LIGHT WITH IN REACH. BED IS LOCKED AND IN LOWEST POSITION. NO SIGNS OF RESPIRATORY DISTRESS OR PAIN NOTED. WILL CONTINUE TO MONITOR.
[2019-01-19 08:00] VITALS: BP 101/41
[2019-01-19] MEDS: BLOOD SUGAR DIAGNOSTIC 1 EACH STRIP IN SCH ×4 (08:33→22:38)
[2019-01-19] MEDS: DOCUSATE SODIUM 250 MG CAPSULE PO SCH (08:53)
[2019-01-19] MEDS: LACTOBACILLUS RHAMNOSUS GG 1 EACH CAP.SPRINK PO SCH ×2 (08:53→17:39)
[2019-01-19] MEDS: PANTOPRAZOLE 40 MG VIAL IV SCH (08:53)
[2019-01-19] MEDS: CHOLECALCIFEROL 1,000 UNIT TABLET (VIT D3) PO SCH (08:53)
[2019-01-19] MEDS: LINEZOLID RTU BAG 600 MG in PREMIX 1 EA IV SCH ×2 (08:54→22:08)
[2019-01-19] MEDS: HYDROGEL DRESSING 90 GM TUBE TP SCH (08:55)
[2019-01-19] MEDS: INSULIN REGULAR, HUMAN 100 UNIT/ML 3 ML VIAL SQ PRN ×4 (08:58→22:39)
[2019-01-19] MEDS: SOD FERRIC GLUC 125 MG in IV NS 0.9% 100 ML IV SCH (14:52)
[2019-01-19 16:00] VITALS: BP 101/41
--- NOTE | 2019-01-19 16:43 | NUR ---
RN NOTES IV BECAME DISLODGED WHEN PT WAS CHANGING POSITION. NEW IV 22 GAUGE INSERTED AND FLASHED BACK WITH BLOOD.
--- NOTE | 2019-01-19 19:15 | NUR ---
RN MS CLOSING NOTES GAVE REPORT TO HIGHWAY TECHNICIAN RN. PT IS SLEEPING IN BED WITH AN IV IN RIGHT FOREARM RUNNING NS @ TKO. CALL LIGHT WITH IN REACH. BED IS LOCKED AND IN LOWEST POSITION. NO SIGNS OF RESPIRATORY DISTRESS OR PAIN NOTED. WILL ENDORSE CONTINUITY OF CARE TO HIGHWAY TECHNICIAN RN.
--- NOTE | 2019-01-19 19:55 | NUR ---
RN NOTES RECEIVED PATIENT AWAKE ALERT AND ORIENTED X3, ROMANSH SPEAKING, CAN UNDERSTAND LITTLE SYRIAC, NO COMPLAINTS OF PAIN OR DISCOMFORT AT THIS TIME, IV ACCESS INTACT AND PATENT, DRAINAGE INTACT NOTED WITH SCANTY AMOUNT OF SEROUSANGUINOUOS FLUID, WILL CONTINUE TO MONITOR ACCORDINGLY.
[2019-01-20] VITALS: BP 130/55
[2019-01-20] MEDS: MEROPENEM 500 MG in IV NS 0.9% 50 ML IV SCH ×2 (05:43→17:56)
[2019-01-20] MEDS: BLOOD SUGAR DIAGNOSTIC 1 EACH STRIP IN SCH ×4 (06:30→21:48)
[2019-01-20] MEDS: INSULIN REGULAR, HUMAN 100 UNIT/ML 3 ML VIAL SQ PRN ×4 (06:31→21:50)
--- NOTE | 2019-01-20 07:27 | NUR ---
RN NOTES ALL NEEDS ATTENDED AND MET, KEPT CLEAN DRY AND COMFORTABLE, NOTED WITH A VERY SCANTY AMOUNT OF SEROSANGUINOUOS REDDISH OUTPUT, NO COMPLAINTS OF PAIN OR DISCOMFORT AT THIS TIME, SAFETY MEASURES INPLACED ASPIRATION PRECAUTION OBSERVED. ENDORSED TO AM SHIFT FOR CONTINUITY OF CARE.
--- NOTE | 2019-01-20 07:30 | NUR ---
RN MS OPENING NOTES RECEIVED REPORT FROM ENGLISH AND READING INSTRUCTOR RN. PT IS RESTING IN BED SEMI DOE POSITION. IV RUNNING IN R FOREARM TKO 22 GAUGE. PT DENIES ANY PAIN OR SOB AT PRESENT MOMENT. LYNCH DRAINING TO GRAVITY. LIVER DRAIN HAS NO OUT PUT PER ENGLISH AND READING INSTRUCTOR RN. BED IS LOCKED AND IN LOWEST POSITION CALL LIGHT WITHIN REACH WILL CONTINUE TO MONITOR.
[2019-01-20 08:00] VITALS: BP 106/40
[2019-01-20] MEDS: CHOLECALCIFEROL 1,000 UNIT TABLET (VIT D3) PO SCH (08:54)
[2019-01-20] MEDS: LINEZOLID RTU BAG 600 MG in PREMIX 1 EA IV SCH (08:54)
[2019-01-20] MEDS: DOCUSATE SODIUM 250 MG CAPSULE PO SCH (08:54)
[2019-01-20] MEDS: PANTOPRAZOLE 40 MG VIAL IV SCH (08:54)
[2019-01-20] MEDS: LACTOBACILLUS RHAMNOSUS GG 1 EACH CAP.SPRINK PO SCH ×2 (08:54→17:21)
[2019-01-20] MEDS: HYDROGEL DRESSING 90 GM TUBE TP SCH (08:55)
[2019-01-20 10:25] LABS: BASOPHILS % (AUTO) 0.2 % (0.0-2.0); EOSINOPHILS % (AUTO) 0.7 % (0.0-6.0); HEMATOCRIT 28 % (33-45); HEMOGLOBIN 9.2 g/dL (11.5-14.8); LYMPHOCYTES # (AUTO) 0.8 /CMM (0.8-4.8); LYMPHOCYTES % (AUTO) 6.3 % (20.0-44.0); MEAN CORPUSCULAR HGB CONC 33 g/dl (31.0-36.0); MEAN CORPUSCULAR VOLUME 92 fL (82-100); MONOCYTES # (AUTO) 0.9 /CMM (0.1-1.30); MONOCYTES % (AUTO) 7.5 % (2.0-12.0); NEUTROPHILS # (AUTO) 10.4 /CMM (1.8-8.9); NEUTROPHILS % (AUTO) 85.3 % (43.0-81.0); PLATELET COUNT (AUTO) 198 /CMM (150-450); RED BLOOD CELL COUNT(AUTO) 3.03 MIL/uL (4.0-5.2); WHITE BLOOD COUNT (AUTO) 12.2 K/uL (4.3-11.0)
[2019-01-20 10:33] LABS: CALCIUM, SERUM 7.9 mg/dL (8.5-10.1); CARBON DIOXIDE 19 mmol/L (21-32); CHLORIDE 103 mmol/L (98-107); CREATININE 2.2 mg/dL (0.6-1.3); GLUCOSE 322 mg/dL (74-106); MAGNESIUM 1.8 mg/dL (1.8-2.4); PHOSPHORUS 4.2 mg/dL (2.5-4.9); POTASSIUM 3.9 mmol/L (3.5-5.1); SODIUM SERUM 133 mmol/L (136-145); UREA NITROGEN, BLOOD 48 mg/dL (7-18)
[2019-01-20] MEDS ORDERED: FUROSEMIDE 40 MG/4 ML VIAL IV ONE (12:00)
[2019-01-20 13:07] LABS: PTH, INTACT 115 pg/mL (15-65)
[2019-01-20] MEDS: SOD FERRIC GLUC 125 MG in IV NS 0.9% 100 ML IV SCH (14:09)
--- NOTE | 2019-01-20 14:30 | NUR ---
RN NOTES DURING PT CARE NEWLY FORMED BLISTERS DISCOVERED ON PT R INNER THIGH WILL CONTINUE TO MONITOR.
[2019-01-20 16:00] VITALS: BP 112/46
--- NOTE | 2019-01-20 17:14 | NUR ---
RN NOTES PER DR. BOYD REQUEST CALLED [facility] MICROBIOLOGY DEPARTMENT. WAS INFORMED THAT ALL THE TECHNICIANS HAVE LEFT FOR THE DAY AND TO CALL BACK TOMORROW AT 0700. WILL ENDORSE TO CYBER OPERATOR RN.
--- NOTE | 2019-01-20 19:05 | NUR ---
RN MS CLOSING NOTES GAVE REPORT TO CERT OCCUPATIONAL THERAPY ASST RN. PT IS RESTING IN BED SEMI DOE POSITION. IV RUNNING IN R FOREARM TKO 22 GAUGE. PT DENIES ANY PAIN OR SOB AT PRESENT MOMENT. LYNCH DRAINING TO GRAVITY. LIVER DRAIN WAS FLUSHED. BED IS LOCKED AND IN LOWEST POSITION CALL LIGHT WITHIN REACH. WILL ENDORSE CONTINUITY OF CARE TO CERT OCCUPATIONAL THERAPY ASST RN.
--- NOTE | 2019-01-20 19:30 | NUR ---
RN MS OPENING NOTES RECEIVED PATIENT IS RESTING IN BED SEMI DOE POSITION, ALERT, ORIENTED X 3. BREATHING EVEN AND UNLABORED. NOT IN ANY DISTRESS. IV RUNNING IN R FOREARM TKO 22 GAUGE. NO COMPLAINTS OF ANY PAIN OR DISCOMFORT. LYNCH DRAINING TO GRAVITY. LIVER DRAIN HAS NO OUT PUT PER MORNING SHIFT RN. SAFETY MEASURES IN PLACE, BED IS LOCKED AND IN LOWEST POSITION CALL LIGHT WITHIN REACH. WILL CONTINUE TO MONITOR ACCORDINGLY.
[2019-01-20 20:00] VITALS: BP 113/51
--- NOTE | 2019-01-20 21:51 | NUR ---
MS RN NOTES BSL checked- 312mg/dL. Insulin 8 units given per sliding scale. Snacks provided
[2019-01-21 04:00] VITALS: BP 122/53
[2019-01-21] MEDS: MEROPENEM 500 MG in IV NS 0.9% 50 ML IV SCH ×2 (05:10→17:10)
--- NOTE | 2019-01-21 06:40 | NUR ---
MS RN CLOSING NOTES PATIENT IS RESTING IN BED, ALERT, ORIENTED X 3. IV LINE IN R FOREARM 22, TKO. PATIENT DENIES ANY PAIN OR SOB AT PRESENT MOMENT. LYNCH CATHETER IN PLACE, DRAINED 1050ML. LIVER DRAIN WAS FLUSHED. SAFETY MEASURES IN PLACE, CALL LIGHT WITHIN REACH, BED IS LOCKED AND IN LOWEST POSITION. WILL ENDORSE CONTINUITY OF CARE TO ONCOMING RN.
[2019-01-21 07:23] LABS: BASOPHILS % (AUTO) 0.4 % (0.0-2.0); EOSINOPHILS % (AUTO) 1.2 % (0.0-6.0); HEMATOCRIT 30 % (33-45); LYMPHOCYTES % (AUTO) 7.3 % (20.0-44.0); MEAN CORPUSCULAR HGB CONC 33 g/dl (31.0-36.0); MEAN CORPUSCULAR VOLUME 90 fL (82-100); MONOCYTES # (AUTO) 0.8 /CMM (0.1-1.30); MONOCYTES % (AUTO) 6.2 % (2.0-12.0); NEUTROPHILS # (AUTO) 11.6 /CMM (1.8-8.9); NEUTROPHILS % (AUTO) 84.9 % (43.0-81.0); PLATELET COUNT (AUTO) 223 /CMM (150-450); RED BLOOD CELL COUNT(AUTO) 3.34 MIL/uL (4.0-5.2); WHITE BLOOD COUNT (AUTO) 13.6 K/uL (4.3-11.0)
[2019-01-21 07:35] LABS: CALCIUM, SERUM 8.1 mg/dL (8.5-10.1); CARBON DIOXIDE 22 mmol/L (21-32); CHLORIDE 104 mmol/L (98-107); CREATININE 1.8 mg/dL (0.6-1.3); GLUCOSE 313 mg/dL (74-106); MAGNESIUM 1.7 mg/dL (1.8-2.4); PHOSPHORUS 4.2 mg/dL (2.5-4.9); POTASSIUM 3.7 mmol/L (3.5-5.1); SODIUM SERUM 136 mmol/L (136-145); UREA NITROGEN, BLOOD 46 mg/dL (7-18)
[2019-01-21 08:00] VITALS: BP_SYST 121; BP_SYST 141; BP_DIAS 50; BP_DIAS 66
[2019-01-21] MEDS: HYDROGEL DRESSING 90 GM TUBE TP SCH (09:00)
[2019-01-21] MEDS: BLOOD SUGAR DIAGNOSTIC 1 EACH STRIP IN SCH ×4 (10:00→22:31)
[2019-01-21] MEDS: Magnesium 1GM/D5W 100ML PREMIX 100 ML IV SCH ×4 (10:00→14:43)
[2019-01-21] MEDS: PANTOPRAZOLE 40 MG VIAL IV SCH (10:19)
[2019-01-21] MEDS: LACTOBACILLUS RHAMNOSUS GG 1 EACH CAP.SPRINK PO SCH ×2 (10:20→17:10)
[2019-01-21] MEDS: CHOLECALCIFEROL 1,000 UNIT TABLET (VIT D3) PO SCH (10:20)
[2019-01-21] MEDS: DOCUSATE SODIUM 250 MG CAPSULE PO SCH (10:20)
[2019-01-21] MEDS: INSULIN REGULAR, HUMAN 100 UNIT/ML 3 ML VIAL SQ PRN ×4 (10:30→22:32)
[2019-01-21 11:27] LABS: BAND % (MANUAL) 6 % (0.0-5.0); EOSINOPHILS % (MANUAL) 3 % (0-4); LYMPHOCYTES % (MANUAL) 3 % (16-48); MONOCYTES % (MANUAL) 3 % (0-11.0); NEUTROPHILS % (MANUAL) 85 (42-76)
[2019-01-21] MEDS ORDERED: FUROSEMIDE 40 MG/4 ML VIAL IV ONE (12:30)
--- NOTE | 2019-01-21 13:34 | NUR ---
ONLY 1 GM MG GIVEN NEED TO ORDER ANOTHER TO GIVE 2 GMS TOTAL, MADE MISTAKE ANDS ONLY TOOK 1 GM ONLY BY MISTAKE
[2019-01-21] MEDS ORDERED: Magnesium 1GM/D5W 100ML PREMIX PIGGYBACK IV ONE (14:00)
[2019-01-21] MEDS: SOD FERRIC GLUC 125 MG in IV NS 0.9% 100 ML IV SCH (14:43)
[2019-01-21] MEDS ORDERED: Magnesium 1GM/D5W 100ML PREMIX 100 ML IV ONE (15:00)
[2019-01-21 16:00] VITALS: BP 108/41
--- NOTE | 2019-01-21 19:00 | NUR ---
HAD UNEVENTFUL DAY, DENIES ANY PAIN, BS REMAIN > 300, DR CARLOS
--- NOTE | 2019-01-21 19:30 | NUR ---
RECEIVED PATIENT AWAKE, AO X 3, ABLE TO MAKE NEEDS KNOWN. NO ACUTE DISTRESS NOTED. DENIES ANY PAIN AT THIS TIME. NO SYMPTOMS OF HYPER/HYPOGLYCEMIA. RIGHT SIDE DRAINAGE CATH INTACT; DRAINING SEROSANGUINOUS FLUID. LYNCH CATH PATENT, INTACT; DRAINING CLEAR YELLOW URINE. SAFETY REMINDERS GIVEN. ON LOW BED WITH BILATERAL UPPER SIDE RAILS UP. CALL SOLIS WITHIN EASY REACH. FAMILY AT BEDSIDE.
--- NOTE | 2019-01-21 19:30 | NUR ---
RECEIVED PATIENT UP IN CHAIR AWAKE, AO X 3, ABLE TO MAKE NEEDS KNOWN. NO ACUTE DISTRESS NOTED. DENIES ANY PAIN AT THIS TIME. SAFETY REMINDERS GIVEN. ON LOW BED WITH BILATERAL UPPER SIDE RAILS UP. CALL SOLIS WITHIN EASY REACH. FAMILY AT BEDSIDE. Addendum: 01/22/19 at 0511 by TERESO LEVIN RN WRONG PATIENT; DISREGARD
[2019-01-21 20:00] VITALS: BP 106/48
[2019-01-22 04:00] VITALS: BP 105/36
[2019-01-22 05:03] VITALS: BP 106/43
--- NOTE | 2019-01-22 06:00 | NUR ---
PATIENT ASLEEP, EASILY AROUSABLE. RESPIRATIONS EVEN. NO SIGNS OF PAIN NOTED. DUE MEDS GIVEN WITH NO ASE NOTED. NEEDS ATTENDED. KEPT CLEAN, DRY, AND COMFORTABLE. SAFETY PRECAUTIONS AND COMFORT MEASURES IN PLACE. WILL GIVE REPORT TO DAY SHIFT FOR CONTINUITY OF CARE.
[2019-01-22] MEDS: MEROPENEM 500 MG in IV NS 0.9% 50 ML IV SCH ×2 (06:13→17:10)
[2019-01-22 07:19] LABS: CALCIUM, SERUM 8.3 mg/dL (8.5-10.1); CARBON DIOXIDE 24 mmol/L (21-32); CHLORIDE 108 mmol/L (98-107); CREATININE 1.2 mg/dL (0.6-1.3); GLUCOSE 316 mg/dL (74-106); POTASSIUM 4.9 mmol/L (3.5-5.1); SODIUM SERUM 139 mmol/L (136-145); UREA NITROGEN, BLOOD 37 mg/dL (7-18)
--- NOTE | 2019-01-22 07:30 | NUR ---
OPENING NOTES RECEIVED REPORT FROM INOCULATOR RN. PT IS ASLEEP IN BED IN SEMI DOE POSITION. PT IS EASILY AWOKEN WHEN NAME IS CALLED. PT DENIES ANY PAIN OR SOB AT PRESENT TIME. LIVER DRAIN IS DRAINING TO GRAVITY WELL LYNCH. FLUSHED IV SITE ON L AC. BED IS LOCKED AND IN LOWEST POSITION WITH CALL LIGHT WITHIN REACH. WILL CONTINUE TO MONITOR.
[2019-01-22 07:38] LABS: BASOPHILS # (AUTO) 0.1 /CMM (0.0-0.2); BASOPHILS % (AUTO) 0.6 % (0.0-2.0); EOSINOPHILS % (AUTO) 1.6 % (0.0-6.0); HEMATOCRIT 29 % (33-45); HEMOGLOBIN 9.7 g/dL (11.5-14.8); LYMPHOCYTES # (AUTO) 1.1 /CMM (0.8-4.8); LYMPHOCYTES % (AUTO) 8.3 % (20.0-44.0); MEAN CORPUSCULAR HGB CONC 33 g/dl (31.0-36.0); MEAN CORPUSCULAR VOLUME 91 fL (82-100); MONOCYTES # (AUTO) 0.6 /CMM (0.1-1.30); MONOCYTES % (AUTO) 4.6 % (2.0-12.0); NEUTROPHILS # (AUTO) 11.4 /CMM (1.8-8.9); NEUTROPHILS % (AUTO) 84.9 % (43.0-81.0); PLATELET COUNT (AUTO) 154 /CMM (150-450); RED BLOOD CELL COUNT(AUTO) 3.22 MIL/uL (4.0-5.2); WHITE BLOOD COUNT (AUTO) 13.4 K/uL (4.3-11.0)
[2019-01-22 08:00] VITALS: BP 116/45
[2019-01-22 08:07] LABS: *SPE A/G RATIO 0.5 (0.7-1.7); *SPE ALBUMIN 1.6 g/dL (2.9-4.4); *SPE ALPHA-1-GLOBULIN 0.4 g/dL (0.0-0.4); *SPE ALPHA-2-GLOBULIN 0.8 g/dL (0.4-1.0); *SPE BETA GLOBULIN 0.7 g/dL (0.7-1.3); *SPE M-SPIKE Not Observed g/dL (Not Observed); *SPEGAMMA GLOBULIN 1.1 g/dL (0.4-1.8)
[2019-01-22] MEDS: BLOOD SUGAR DIAGNOSTIC 1 EACH STRIP IN SCH ×4 (08:13→21:30)
[2019-01-22] MEDS: CHOLECALCIFEROL 1,000 UNIT TABLET (VIT D3) PO SCH (08:14)
[2019-01-22] MEDS: LACTOBACILLUS RHAMNOSUS GG 1 EACH CAP.SPRINK PO SCH ×2 (08:14→17:09)
[2019-01-22] MEDS: PANTOPRAZOLE 40 MG VIAL IV SCH (08:14)
[2019-01-22] MEDS: DOCUSATE SODIUM 250 MG CAPSULE PO SCH (08:14)
[2019-01-22] MEDS: HYDROGEL DRESSING 90 GM TUBE TP SCH (08:15)
[2019-01-22] MEDS: INSULIN REGULAR, HUMAN 100 UNIT/ML 3 ML VIAL SQ PRN ×4 (08:16→21:32)
--- NOTE | 2019-01-22 14:55 | NUR ---
RN MS NOTES SPOKE WITH SUMMER THE MICROBIOLOGY TECH AT [facility]. PER SUMMER NO GROWTH IN BOTH URINE CULTURES SAID HE WILL RELEASE URINE CULTURE SENSITIVITY TO ZOSYN.
[2019-01-22 16:00] VITALS: BP 115/61
--- NOTE | 2019-01-22 19:15 | NUR ---
MS/RN INITIAL NOTES RECEIVED PT IN BED, A/O X2, ZAMBIAN SPEAKING. ON 2L O2 VIA NC, NO SOB NOTED. NOTED WITH INTACT LIVER DRAIN, DRAINING BY GRAVITY. WITH FC INTACT AND IN PLACED. LEFT AC G18 HEPLOCK INTACT AND PATENT. HOB ELEVATED. SAFETY MEASURES IN PLACED. CALL LIGHT WITHIN EASY REACH. WILL CONT TO MONITOR
--- NOTE | 2019-01-22 19:20 | NUR ---
RN CLOSING NOTES PT IS RESTING IN BED. REPORT GIVEN TO GROCERY CLERK MARKING RN. LIVER DRAIN IS INTACT AND WAS FLUSHED WITH 10 ML NS. LEFT WOUND REDRESSED AT 1730. NO OBVIOUS SIGNS OF PAIN OR SOB NOTED AT PRESENT TIME. IV IN LEFT AC IS SL. ENDORSED CONTINUITY OF CARE TO GROCERY CLERK MARKING RN.
[2019-01-22 20:00] VITALS: BP 116/44
[2019-01-23] VITALS (7 sets, daily range): BP systolic 115–128; BP diastolic 44–66
[2019-01-23 05:56] LABS: AMEBIASIS ANTIBODIES Negative (Negative)
[2019-01-23] MEDS: MEROPENEM 500 MG in IV NS 0.9% 50 ML IV SCH ×2 (06:02→17:08)
[2019-01-23 06:26] LABS: BASOPHILS # (AUTO) 0.1 /CMM (0.0-0.2); BASOPHILS % (AUTO) 0.5 % (0.0-2.0); EOSINOPHILS % (AUTO) 1.2 % (0.0-6.0); HEMATOCRIT 29 % (33-45); HEMOGLOBIN 9.5 g/dL (11.5-14.8); LYMPHOCYTES # (AUTO) 1.1 /CMM (0.8-4.8); LYMPHOCYTES % (AUTO) 8.4 % (20.0-44.0); MEAN CORPUSCULAR HGB CONC 33 g/dl (31.0-36.0); MEAN CORPUSCULAR VOLUME 91 fL (82-100); MONOCYTES # (AUTO) 0.6 /CMM (0.1-1.30); MONOCYTES % (AUTO) 4.8 % (2.0-12.0); NEUTROPHILS # (AUTO) 11.1 /CMM (1.8-8.9); NEUTROPHILS % (AUTO) 85.1 % (43.0-81.0); PLATELET COUNT (AUTO) 219 /CMM (150-450); RED BLOOD CELL COUNT(AUTO) 3.12 MIL/uL (4.0-5.2)
[2019-01-23 06:40] LABS: CARBON DIOXIDE 27 mmol/L (21-32); CHLORIDE 102 mmol/L (98-107); GLUCOSE 243 mg/dL (74-106); MAGNESIUM 1.6 mg/dL (1.8-2.4); PHOSPHORUS 3.9 mg/dL (2.5-4.9); POTASSIUM 4.4 mmol/L (3.5-5.1); SODIUM SERUM 136 mmol/L (136-145); UREA NITROGEN, BLOOD 28 mg/dL (7-18)
--- NOTE | 2019-01-23 06:56 | NUR ---
RN NOTES PT IN STABLE CONDITION. NO ACUTE CHANGES THROUGHOUT THE SHIFT. ALL NEEDS ANTICIPATED. SAFETY MEASURES OBSERVED AT ALL TIMES. ENDORSED TO AM SHIFT RN FOR MAGDIEL
[2019-01-23] MEDS: BLOOD SUGAR DIAGNOSTIC 1 EACH STRIP IN SCH ×4 (07:30→22:05)
[2019-01-23] MEDS: DOCUSATE SODIUM 250 MG CAPSULE PO SCH (08:51)
[2019-01-23] MEDS: CHOLECALCIFEROL 1,000 UNIT TABLET (VIT D3) PO SCH (08:51)
[2019-01-23] MEDS: LACTOBACILLUS RHAMNOSUS GG 1 EACH CAP.SPRINK PO SCH ×2 (08:52→17:04)
[2019-01-23] MEDS: PANTOPRAZOLE 40 MG VIAL IV SCH (08:53)
[2019-01-23] MEDS: HYDROGEL DRESSING 90 GM TUBE TP SCH (08:54)
[2019-01-23] MEDS: Magnesium 1GM/D5W 100ML PREMIX 100 ML IV SCH ×2 (11:15→12:23)
[2019-01-23] MEDS: INSULIN REGULAR, HUMAN 100 UNIT/ML 3 ML VIAL SQ PRN ×3 (12:50→22:06)
--- NOTE | 2019-01-23 19:35 | NUR ---
MS/RN NOTES RECEIVED PT. LYING IN BED. PT. IS AWAKE, ALERT AND ORIENTED X2. BREATHING EVEN AND UNLABORED ON ROOM AIR. NO SOB, RESPIRATORY DISTRESS OR COMPLAINTS OF PAIN NOTED AT THIS TIME. PT. REMAINS WITH NO IV ACCESS AT THIS TIME. PT. IS AWAITING MIDLINE INSERTION TONIGHT. PT. WITH RIGHT UPPER ABDOMINAL DRAIN PRESENT, PATENT AND INTACT, 500CC DARK BROWN FLUID NOTED IN DRAINAGE BAG. WILL CONTINUE TO MONITOR OUTPUT. PER DAYSHIFT NURSE DRAIN WILL BE REMOVED TOMORROW. PT. WITH LYNCH CATHETER PRESENT, PATENT AND INTACT DRAINING CLEAR YELLOW URINE. BED LOCKED AND IN LOWEST POSITION, SIDE RAILS UP X3, BED ALARM ON, CALL LIGHT WITHIN REACH, WILL CONTINUE TO MONITOR.
[2019-01-24 04:00] VITALS: BP 105/43
[2019-01-24] MEDS: MEROPENEM 500 MG in IV NS 0.9% 50 ML IV SCH ×2 (05:59→18:11)
--- NOTE | 2019-01-24 06:22 | NUR ---
MS/RN NOTES PT. IS LYING IN BED RESTING. BREATHING EVEN AND UNLABORED ON ROOM AIR. NO SOB, RESPIRATORY DISTRESS OR COMPLAINTS OF PAIN NOTED AT THIS TIME AND THROUGHOUT SHIFT. PT. WITH RIGHT UPPER ARM 18 GAUGE MIDLINE PRESENT, PATENT AND INTACT. PT. WITH RIGHT UPPER ABDOMINAL DRAIN PRESENT, PATENT AND INTACT, NO ADDITIONAL OUTPUT NOTED THROUGHOUT SHIFT, 500CC REMAINS IN DRAINAGE BAG. PT. WITH LYNCH CATHETER PRESENT, PATENT AND INTACT DRAINING CLEAR YELLOW URINE. ALL PT. NEEDS MET. PT. OFFLOADED, TURNED AND REPOSITIONED Q2H AND NEEDED. BED LOCKED AND IN LOWEST POSITION, SIDE RAILS UP X3, BED ALARM ON, CALL LIGHT WITHIN REACH, WILL ENDORSE TO DAYSHIFT NURSE FOR CONTINUITY OF CARE.
[2019-01-24 06:50] LABS: ALANINE AMINOTRANSFERASE 27 U/L (12-78); ALBUMIN 1.5 g/dL (3.4-5.0); ALKALINE PHOSPHATASE 92 U/L (46-116); ASPARTATE AMINOTRANSFERASE 19 U/L (15-37); BILIRUBIN,TOTAL 0.5 mg/dL (0.2-1.0); CALCIUM, SERUM 7.9 mg/dL (8.5-10.1); CARBON DIOXIDE 28 mmol/L (21-32); CHLORIDE 101 mmol/L (98-107); CREATININE 1.1 mg/dL (0.6-1.3); GLUCOSE 313 mg/dL (74-106); MAGNESIUM 1.5 mg/dL (1.8-2.4); PHOSPHORUS 3.5 mg/dL (2.5-4.9); POTASSIUM 4.6 mmol/L (3.5-5.1); SODIUM SERUM 135 mmol/L (136-145); TOTAL PROTEIN, SERUM 5.9 g/dL (6.4-8.2); UREA NITROGEN, BLOOD 25 mg/dL (7-18)
[2019-01-24 06:54] LABS: BASOPHILS # (AUTO) 0.1 /CMM (0.0-0.2); BASOPHILS % (AUTO) 1.1 % (0.0-2.0); EOSINOPHILS % (AUTO) 0.9 % (0.0-6.0); HEMATOCRIT 27 % (33-45); HEMOGLOBIN 8.9 g/dL (11.5-14.8); LYMPHOCYTES # (AUTO) 0.9 /CMM (0.8-4.8); LYMPHOCYTES % (AUTO) 7.1 % (20.0-44.0); MEAN CORPUSCULAR HGB CONC 33 g/dl (31.0-36.0); MEAN CORPUSCULAR VOLUME 93 fL (82-100); MONOCYTES # (AUTO) 0.6 /CMM (0.1-1.30); MONOCYTES % (AUTO) 4.9 % (2.0-12.0); NEUTROPHILS # (AUTO) 10.9 /CMM (1.8-8.9); PLATELET COUNT (AUTO) 223 /CMM (150-450); RED BLOOD CELL COUNT(AUTO) 2.93 MIL/uL (4.0-5.2); WHITE BLOOD COUNT (AUTO) 12.6 K/uL (4.3-11.0)
[2019-01-24] MEDS: BLOOD SUGAR DIAGNOSTIC 1 EACH STRIP IN SCH ×3 (07:30→18:12)
--- NOTE | 2019-01-24 07:30 | NUR ---
MS RN RECEIVED ON BED, AWAKE,ALERT,ORIENTED X2,NOT IN ANY FORM OF DISTRESS, RESPIRATIONS EVEN AND UNLABORED,NO SOB NOTED, LUNGS ARE DIMINISHED, ABDOMEN SOFT,POSITIVE BOWEL SOUNDS, DENIES PAIN AT THIS TIME,ALL NEEDS ATTENDED.
[2019-01-24 08:00] VITALS: BP 116/50
[2019-01-24] MEDS: LACTOBACILLUS RHAMNOSUS GG 1 EACH CAP.SPRINK PO SCH ×2 (08:54→18:12)
[2019-01-24] MEDS: DOCUSATE SODIUM 250 MG CAPSULE PO SCH (08:54)
[2019-01-24] MEDS: PANTOPRAZOLE 40 MG VIAL IV SCH (08:54)
[2019-01-24] MEDS: CHOLECALCIFEROL 1,000 UNIT TABLET (VIT D3) PO SCH (08:54)
[2019-01-24] MEDS: HYDROGEL DRESSING 90 GM TUBE TP SCH (08:54)
[2019-01-24] MEDS ORDERED: GLUCERNA SHAKE 237 ML CAN PO SCH (09:00)
--- NOTE | 2019-01-24 09:00 | NUR ---
ms pardo breakfast served,due meds given, tolerated well.
--- NOTE | 2019-01-24 11:00 | NUR ---
ms rn was seen by dr. glasgow, will be discharge if cleared by id and drain needs to be removed.
[2019-01-24 12:00] VITALS: BP 115/50
[2019-01-24] MEDS: INSULIN REGULAR, HUMAN 100 UNIT/ML 3 ML VIAL SQ PRN ×2 (12:50→18:17)
[2019-01-24] MEDS: Magnesium 1GM/D5W 100ML PREMIX 100 ML IV SCH ×2 (13:50→15:21)
[2019-01-24] MEDS ORDERED: ERTA1VIA4 IJ (13:52)
--- NOTE | 2019-01-24 14:00 | NUR ---
ms rn was seen by dr. solorzano, needs to removed drain, called [facility], but nobody to removed drain and they don't have a instrument to remove it. aware.
--- NOTE | 2019-01-24 14:26 | NUR ---
CLARIFIED WITH [facility] DISCHARGE ORDER PT. STILL HAVE ABDOMINAL DRAIN,PER MD NEED TO D/C DRAIN PER SURGERY PRIOR TO DISCHARGE.PRIMARY NURSE NOTIFIED OSKAR YIP FOR DR. CHINMAY SCHAFFER AWAITS RESPONSE.
[2019-01-24 16:00] VITALS: BP 99/39
--- NOTE | 2019-01-24 17:00 | NUR ---
ms rn drain not to be removed per dr. hernandez's order, go home w/ drain a nd have a follow up w/ him in two weeks.
--- NOTE | 2019-01-24 17:30 | NUR ---
ms rn drain bag changed, patient ready to go home, waiting for family to pick her up.
== END 2019-01-24 19:42 | disposition home health service (06) | DRG 853 ==
LOC: ER 13:05 → ICU 17:50 → TELE-TD 01-16 18:12 → MEDSG1 01-17 08:38
PROVIDERS: ADMIT Nurse Practitioner Acute Care; ATTEND Student in an Organized Health Care Education/Training Program
PROC: 0JBR0ZZ Excision of Left Foot Subcutaneous Tissue and Fascia, Open Approach (ICD-10-PCS; principal; 2019-01-16)
PROC: 0F913ZZ Drainage of Right Lobe Liver, Percutaneous Approach (ICD-10-PCS; 2019-01-17)
PROC: 05H533Z Insertion of Infusion Device into Right Subclavian Vein, Percutaneous Approach (ICD-10-PCS; 2019-01-23)
DX: A41.9 Sepsis, unspecified organism (principal); R65.21 Severe sepsis with septic shock; J18.9 Pneumonia, unspecified organism; N17.0 Acute kidney failure with tubular necrosis; K75.0 Abscess of liver; K72.00 Acute and subacute hepatic failure without coma; E87.2 Acidosis; E44.0 Moderate protein-calorie malnutrition; E87.1 Hypo-osmolality and hyponatremia; N39.0 Urinary tract infection, site not specified; D68.59 Other primary thrombophilia; L97.429 Non-pressure chronic ulcer of left heel and midfoot with unspecified severity; M48.54XA Collapsed vertebra, not elsewhere classified, thoracic region, initial encounter for fracture; J81.1 Chronic pulmonary edema; K21.9 Gastro-esophageal reflux disease without esophagitis; E78.5 Hyperlipidemia, unspecified; E86.1 Hypovolemia; E11.621 Type 2 diabetes mellitus with foot ulcer; D69.6 Thrombocytopenia, unspecified; E83.42 Hypomagnesemia; E11.22 Type 2 diabetes mellitus with diabetic chronic kidney disease; N18.9 Chronic kidney disease, unspecified; B96.20 Unspecified Escherichia coli [E. coli] as the cause of diseases classified elsewhere; Z88.0 Allergy status to penicillin; R74.0 Nonspecific elevation of levels of transaminase and lactic acid dehydrogenase [LDH]; I48.91 Unspecified atrial fibrillation; D63.8 Anemia in other chronic diseases classified elsewhere; E88.09 Other disorders of plasma-protein metabolism, not elsewhere classified; Z68.32 Body mass index [BMI] 32.0-32.9, adult; K80.20 Calculus of gallbladder without cholecystitis without obstruction; E11.51 Type 2 diabetes mellitus with diabetic peripheral angiopathy without gangrene; J84.89 Other specified interstitial pulmonary diseases; E11.65 Type 2 diabetes mellitus with hyperglycemia; L89.610 Pressure ulcer of right heel, unstageable; E11.42 Type 2 diabetes mellitus with diabetic polyneuropathy; E66.01 Morbid (severe) obesity due to excess calories; I12.9 Hypertensive chronic kidney disease with stage 1 through stage 4 chronic kidney disease, or unspecified chronic kidney disease; Z79.4 Long term (current) use of insulin
CPT/HCPCS: 36415; 71045-TC; 73650-TC; 74181-TC; 75989-TC; 76705-TC; 80048-TC; 80053-TC; 80061-TC; 80074; 80076-TC; 80202-TC; 81000-TC; 82550-TC; 82570-TC; 82728-TC; 82962-TC; 83540-TC; 83605-TC; 83690-TC; 83735-TC; 83880; 83970; 84100-TC; 84155; 84155-TC; 84165; 84300-TC; 84443-TC; 84484-TC; 85025-TC; 85730-TC; 86753; 87040-TC; 87070-TC; 87081-TC; 87086-TC; 87186-TC; 87400; 88305-TC; 88312-TC; 93307-TC; 94799-TC; A4216; A6248; A6402; C9113; G0378; J1815; J1940; J1956; J2020; J2185; J2250; J2310; J2405; J2916; J3010; J3370; J3475; J3490; J7030; J7040; J7042; J7050; J7060